=== PATIENT | female | born 1975 | race African-American/Black ===

== ENCOUNTER 2024-11-03 11:04 | Emergency (ER) | payer MEDICAID ==
[~2024-11-03] VITALS: Ht 175.3 cm; Wt 67.0 kg
[2024-11-03 11:12] VITALS: BP 110/77; RESP 18; TEMP 98.8; O2SAT 98
[2024-11-03 11:15] VITALS: PULSE 92; O2SAT 100
[2024-11-03 13:12] LABS: CLARITY URINE CLEAR (CLEAR); COLOR URINE YELLOW (YELLOW); GLUCOSE URINE NEGATIVE (NEGATIVE); KETONES URINE NEGATIVE (NEGATIVE); LEUKOCYTE ESTERASE URINE NEGATIVE (NEGATIVE); NITRITE URINE NEGATIVE (NEGATIVE); OCCULT BLOOD URINE NEGATIVE (NEGATIVE); PH URINE 5.5 (4.5-8.0); PROTEIN URINE NEGATIVE (NEGATIVE); SPECIFIC GRAVITY URINE 1.004 (1.005-1.030); UROBILINOGEN URINE 0.2 E.U./dL (0.2-1.0)
== END 2024-11-03 16:35 | disposition home or self-care (01) ==
LOC: ER 11:04
DX: B71.9 Cestode infection, unspecified (principal); R51.9 Headache, unspecified
CPT/HCPCS: 81003; 81025; 99284